=== PATIENT | female | born 1955 ===

== ENCOUNTER 2019-06-12 10:45 | Inpatient (IN) | payer OTHER ==
[~2019-06-12] VITALS: Ht 152.4 cm; Wt 60.3 kg
[2019-06-12] MEDS ORDERED: LIPITOR40 MG PO (12:55)
[2019-06-12] MEDS ORDERED: SYNTHROID50 MCG PO (12:55)
[2019-06-12] MEDS ORDERED: GLYCOTROL CAPS1 EACH (12:55)
[2019-06-12] MEDS ORDERED: VITAMIN D400 UNIT (12:55)
[2019-06-12] MEDS ORDERED: COLLAGEN HYDROLY1 GM (12:56)
[2019-06-17] MEDS ORDERED: VITAMIN D350 MC2 PO (08:13)
[2019-06-17] MEDS ORDERED: VITAMIN B-121000 MCG PO (08:14)
[2019-06-20] MEDS ORDERED: ACETAMINOPHEN500 M2 PO ×2 (09:55)
[2019-06-20] MEDS ORDERED: PRILOSEC OTC20 MG PO ×2 (09:55)
[2019-06-20] MEDS ORDERED: INTESTINEX680 M1 PO ×2 (09:55)
== END 2019-06-20 10:41 | disposition home or self-care (01) | DRG 330 ==
LOC: O/R 06-17 05:33 → SURG 06-17 05:33 → SURH 06-17 10:15 → SURG 06-17 15:55
PROVIDERS: ADMIT Surgery
PROC: 07TB4ZZ Resection of Mesenteric Lymphatic, Percutaneous Endoscopic Approach (ICD-10-PCS; 2019-06-17)
PROC: 0DTF4ZZ Resection of Right Large Intestine, Percutaneous Endoscopic Approach (ICD-10-PCS; principal; 2019-06-17 10:15)
DX: C18.2 Malignant neoplasm of ascending colon (principal); D62 Acute posthemorrhagic anemia; R59.0 Localized enlarged lymph nodes

== ENCOUNTER 2019-06-16 06:00 | Day surgery (SDC) | payer OTHER ==
[~2019-06-16 06:00] MED LIST: COLLAGEN HYDROLY1 GM; GLYCOTROL CAPS1 EACH; LIPITOR40 MG PO; SYNTHROID50 MCG PO; VITAMIN D400 UNIT
[2019-06-17] MEDS ORDERED: VITAMIN D350 MC2 PO (08:13)
[2019-06-17] MEDS ORDERED: VITAMIN B-121000 MCG PO (08:14)
== END 2019-06-16 10:50 | disposition home or self-care (01) ==
LOC: AMB-ENDOS 06:00
DX: K62.89 Other specified diseases of anus and rectum (principal)